=== PATIENT | male | born 1950 | race Caucasian/White ===

== ENCOUNTER → 2017-06-11 | Outpatient (CLI) | payer OTHER ==
[~2017-06-11] MED LIST: ASCORBIC ACID500 M3 PO; ASPIR-TRIN325 M1 PO; BISAC-EVAC10 MG PR; BISACODYL5 MG PO; CALCIUM 500 MG1 EAC1 PO; CELEBREX200 MG PO; CHLORZOXAZONE500 MG PO; COMPAZINE10 MG PO; CRESTOR40 MG PO; CYCLOBENZAPRINE10 MG PO; DAILY VITAMIN1 EAC8 PO; DEXAMETHASONE1 MG PO; DIOVAN40 MG PO; DOCUSATE SODIU100 MG PO; ENDOCET 5-3251 EACH PO; Ecotrin PO; FAMOTIDINE20 MG PO; FEOSOL325 MG PO; FLINTSTONES1 EACH PO; FOLIC ACID1 MG PO; Feosol PO; Flintstones PO; HYDROCORTISON28.4 GM TP; Lipitor PO; MECLIZINE HCL25 MG PO; MICROZIDE12.5 M1 PO; MILK OF MAGNESI10 ML PO; MULTIVITAMIN1 EAC2 PO; OXYCODONE HCL5 MG PO; PRAVACHOL80 MG PO; SENNA LAX8.6 MG PO; SENNA-TIME S T1 EACH PO; SENOKOT S,PE1 TABLET PO; Senokot S,Pericolace PO; THERAGRAN1 TABLET PO; TRAMADOL HCL50 MG PO; TYLENOL REGULA325 MG PO; Theragran PO; Vicodin,Lortab 5/500 PO; Vicodin,Norco 5/325 PO; Zeasorb Antifungal T TP; Zocor PO; celeBREX PO
== END | disposition home or self-care (01) ==
LOC: AMB 10:12
PROC: 02PYX3Z Removal of Infusion Device from Great Vessel, External Approach (ICD-10-PCS; principal; 2017-06-11)
PROC: 0JPT3VZ Removal of Infusion Pump from Trunk Subcutaneous Tissue and Fascia, Percutaneous Approach (ICD-10-PCS; principal; 2017-06-11)
DX: Z45.2 Encounter for adjustment and management of vascular access device (principal); I87.8 Other specified disorders of veins; Z92.21 Personal history of antineoplastic chemotherapy